=== PATIENT | female | born 1940 | race Caucasian/White ===

== ENCOUNTER 2025-06-14 07:47 | Outpatient (AMB) | payer MEDICARE, SELFPAY ==
[2025-06-14 08:09] VITALS: BP 130/80; PULSE 80; RESP 16; O2SAT 98; BMI 25.4
--- NOTE | 2025-06-14 08:09 | A.OFFVIS_ITS ---
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 Allergies Sulfa (Sulfonamide Antibiotics) Allergy (Unknown, Verified 06/14/25 08:09) Unknown Medication List - Last Reconciled 06/14/25 by Cinda Rai CNP calcium carbonate-vitamin D3 600 mg-10 mcg (400 unit) (Calcium 600 + D(3)) 1 tab PO DAILY immun glob G(IgG)-pro-IgA 0-50 10 % (Privigen) 10 grams IV Q4W multivitamin 1 tab PO DAILY potassium chloride ER 10 mEq PO DAILY triamterene-hydrochlorothiazid 75-50 mg 1 tab PO DAILY HPI Comments Details: Julia is an 85-year-old female patient with a past medical history of hypertension, hyperlipidemia, osteopenia, melanoma, presenting to the clinic today upon referral from primary care for elevated pTAU level in the setting of memory decline. In addition to the lab work, a CT of the head was performed noting chronic microvascular changes and diffuse cerebral atrophy. I do not see a TSH and B12 level for review though it is mentioned in the chart that she has an elevated TSH level in the setting of a subclinical hypothyroidism. According to Julia today, she started to notice changes to her memory about 1 year ago. Initially they were slight and have recently become more profound. She also has had more recent falls (2 over the past year). She is an avid walker and very active around her home. She does feel that her falls have been a result of some distraction/ lack of concentration. She notices that she has been more forgetful and has had some difficulty with word findings. 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 Memory evaluation: Onset of memory changes: About 1 year ago Rate of progression: More rapidly over the course of the last few months Cognitive: Difficulty remembering upcoming events:No, but she uses a calendar Getting lost: No Difficulty keeping track of time: No Difficulty finding appropriate words: Yes Difficulty making decisions or problem-solving: No, she does feel slower to process but does not feel that this is a significant issue Functional: Difficulty writing checks, paying bills: No, she manages her own finances Difficulty driving a car: No Difficulty shopping alone: No Difficulty performing household tasks:No Difficulty managing own medications:No, she manages her own medications Difficulty pursuing hobbies/leisure activities:No Change in gait: Has not noticed any changes aside from the falls that she noted Social activities: Difficulty holding conversation:Yes as she has some difficulty with word finding at times Decreased social activity with family/friends:No Less cooperative:No Less aware of others feeling/her full:No Less concerned about bathing/dressing/grooming:No Behavioral: Sad, depressed:No Anxious, worried:No Inpatient, fidgety:No Acts impulsively, disinhibited:No Change appetite or weight:No changes Change in sleep pattern, daytime fatigue:She finds that her sleep has been poor. Last night she slept only about 3 hours. This has been going on for about 2-3 year. She does nap more throughout the day. Hallucinations:No PFSH Medical History (Updated 06/14/25 @ 09:10 by Cinda Rai CNP) History of colon polyps HLD (hyperlipidemia) Skin cancer Osteopenia Hypertension Surgical History (Updated 06/07/25 @ 13:19 by Caleb Baker CMA) S/P cholecystectomy H/O bilateral cataract extraction Family History (Updated 06/07/25 @ 13:21 by Caleb Baker CMA) Mother CVA (cerebral vascular accident) Sister Hypertension Father Myocardial infarction acute Social History (Updated 06/07/25 @ 13:22 by Caleb Baker CMA) Alcohol intake: current Comment: 1 glass of wine daily Patient Tobacco Use Status: Never used Tobacco Current occupational status: retired Review of Systems Const Reports as per HPI Physical Exam Exam Exam: MOCA: MOCA total: Executive:01/01 Namin/3 Attention:03/04 Language:10/01 Abstraction:10/31 Delayed recall:11/03 Orientation:03/04 Vital Signs: Last Vital Signs Pulse 80 06/14/25 08:09 Resp 16 06/14/25 08:09 BP 130/80 06/14/25 08:09 Pulse Ox 98 06/14/25 08:09 BMI result Body Mass Index 25.4 Const General: cooperative, healthy appearing, comfortable and no acute distress Nutritional Appearance: well nourished Orientation/consciousness: patient oriented x3 Limitations: no limitations HEENT Head: Yes normal to inspection and Yes normocephalic Eyes General: appearance normal, both eyes and all related structures Visual Prieto: normal visual prieto by confrontation Alignment and Position: alignment normal Periorbital: periorbital findings normal Eyelids: Yes eyelids normal Conjunctivae: conjunctivae normal Sclerae: sclerae normal Neck Neck: Yes normal visual inspection and Yes full ROM General: Yes no CVA tenderness Back/Spine/Pelvis Back: no CVA tenderness Cervical Spine: normal cervical lordosis Thoracic/Lumbar Spine: thoracic and lumbar spine normal to inspection Neuro General: patient oriented x3 and tone normal Cranial nerves: Yes CN's II-XII intact bilaterally and Yes Facial sensation intact/muscles of mastication intact Gait exam (Neuro): Normal gait present Motor exam (neuro): 5/5 motor strength present throughout and Tremors during motor activity present bilateral upper extremity other (Action tremor only ) Sensory Exam: double simultaneous stimulation for sensation normal Deep tendon reflexes (DTR's): Right triceps reflex intensity grade: 1+, Left triceps reflex intensity grade: 1+, Rt Biceps (C5, C6): 1+, Left biceps reflex intensity grade: 1+, Right brachioradialis reflex intensity grade: 1+, Left brachioradialis reflex intensity grade: 1+, Right patellar reflex intensity grade: 3+, Left patellar reflex intensity grade: 3+, Right ankle reflex intensity grade: 2+ and Left ankle reflex intensity grade: 2+ Romberg Test: Negative Pupils: Normal pupillary reactivity/response: bilateral Psych Appearance: grossly normal Mental Status: mental status grossly normal Speech and movement: Normal speech and movement present and Clear speech present Affect: normal affect Attitude: cooperative Thought process: Normal thought process present Thought content: Normal thought content present Insight: Good insight present (Psych) Judgement: Good judgement present (Psych) Assessment & Plan Assessment & Plan (1) Memory change: Code(s): R41.3 - Other amnesia Category: Medical (2) Mild cognitive impairment: Code(s): G31.84 - Mild cognitive impairment of uncertain or unknown etiology Category: Medical Plan Julia is an 85-year-old female patient with a past medical history of hypertension, hyperlipidemia, osteopenia, melanoma, presenting to the clinic today upon referral from primary care for elevated pTAU level in the setting of memory decline. Her history and [place] score today to support diagnosis of mild cognitive impairment and possibility/likelihood of Alzheimer's dementia. She has not had an MRI of the brain and I am unable to find records of a B12 and TSH level. I will have her complete these preliminary tests before moving forward with any further testing such as a PET scan or lumbar puncture. We discussed the medication options available to her now as well as options moving forward depending on testing. She would like to start on eye memory support medication. We discussed donepezil and its role in cognitive impairment. We also discussed some of the newer medications available including lequembi and kisunla as well as the risks that come along with these medications. We did however discuss their specific role in Alzheimer's disease and the required testing before starting any of these medications including a PET scan or lumbar puncture. We will 1st start with basic labs and MRI screening and a follow-up from there at which time we can decide on any desire for further testing or explanation of any further pharmaceutical options. She does remain social and performs brain exercising activities on her computer. She has been compliant with her blood pressure medication and it is a balanced diet. -Labs: B12, TSH -MRI brain without contrast -Start donepizil 5mg daily for day-to-day cognative assistance -Follow-up in 2 months after workup has been completed -Future consideratinos include amyloid PET scan Orders: Orders TSH reflex Free T4 Today R41.3 - Other amnesia Vitamin B12 Today R41.3 - Other amnesia MR head/brain wo con Today R41.3 - Other amnesia Medications: New donepezil 5 mg PO DAILY 30 tabs 5RF 30 days Coding Level of Care Code New Pt Level 4 (94019) Diagnoses Memory change R41.3 Mild cognitive impairment G31.84
== END 2025-06-14 09:01 | disposition home or self-care (01) ==
PROVIDERS: PCP Internal Medicine; Visit Provider Nurse Practitioner
DX: G31.84 Mild cognitive impairment of uncertain or unknown etiology (principal); R41.3 Other amnesia
CPT/HCPCS: 99204

== ENCOUNTER 2025-06-14 07:47 | Outpatient (REF) | payer MEDICARE, OTHER, SELFPAY ==
[2025-06-14 12:18] LABS: Vitamin B12 699 pg/mL (200-900)
[2025-06-14 13:43] LABS: Free T4 (Free Thyroxine) 0.95 ng/dL (0.71-1.85)
== END 2025-06-14 07:48 | disposition home or self-care (01) ==
LOC: HO.LAB 07:47
PROVIDERS: PCP Internal Medicine; Visit Provider Nurse Practitioner
DX: R41.3 Other amnesia (principal); I10 Essential (primary) hypertension; Z79.899 Other long term (current) drug therapy
CPT/HCPCS: 36415; 82607; 84439; 84443; 99202

== ENCOUNTER → 2025-07-09 08:36 | Outpatient (BNV) | payer MEDICARE, SELFPAY | PROVIDERS: PCP Internal Medicine; Visit Provider Radiology Diagnostic Radiology | DX: I67.82 Cerebral ischemia (principal); H70.90 Unspecified mastoiditis, unspecified ear | CPT/HCPCS: 70551 ==

== ENCOUNTER 2025-07-09 08:40 | Outpatient (REF) | payer MEDICARE, SELFPAY | END 2025-07-09 08:41 | disposition home or self-care (01) | LOC: HO.MRI 08:40 | PROVIDERS: PCP Internal Medicine; Visit Provider Nurse Practitioner | DX: R41.3 Other amnesia (principal) | CPT/HCPCS: 70551 ==

== ENCOUNTER 2025-07-28 12:53 | Outpatient (AMB) | payer MEDICARE, OTHER, SELFPAY ==
--- NOTE | 2025-07-28 12:55 | A.OFFVIS_ITS ---
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 I saw her on 06/14/2025 at which time history was obtained, [place] score was completed scoring and orders were placed including a TSH, B12 study, and MRI of the brain. Her B12 was normal though she did have a modest increase in her TSH level. Her MRI of the brain from 07/09/2025 showed chronic periventricular microvascular ischemic disease, a partially empty sella, and some mastoid sinus disease but without any acute intracranial findings. She is today accompanied by her son. We together reviewed the lab results and MRI of her brain and discuss next steps. She would be interested in a trial of Kisunla pending her PET scan. If the scan does show evidence of Alzheimer's disease, she would like to ?do everything she can to stop it?. Her did have Alzheimer's dementia and she is fearful to have a similar experience then to what he had. [facility] Medical History (Updated 06/14/25 @ 09:10 by Cinda Rai CNP) History of colon polyps HLD (hyperlipidemia) Skin cancer Osteopenia Hypertension Surgical History (Updated 06/07/25 @ 13:19 by Caleb Baker CMA) S/P cholecystectomy H/O bilateral cataract extraction Family History (Updated 06/07/25 @ 13:21 by Caleb Baker CMA) Mother CVA (cerebral vascular accident) Sister Hypertension Father Myocardial infarction acute Social History (Updated 06/07/25 @ 13:22 by Caleb Baker CMA) Alcohol intake: current Comment: 1 glass of wine daily Patient Tobacco Use Status: Never used Tobacco Current occupational status: retired Review of Systems Const All systems reviewed & are unremarkable except as noted in HPI and below Physical Exam Vital Signs: Last Vital Signs Pulse 74 07/28/25 13:02 Resp 16 07/28/25 13:02 BP 162/96 H 07/28/25 13:02 Pulse Ox 96 07/28/25 13:02 Oxygen Delivery Method Room Air 07/28/25 13:02 BMI result Body Mass Index 25.4 Const General: cooperative, healthy appearing, comfortable and no acute distress Nutritional Appearance: well nourished Orientation/consciousness: patient oriented x3 Limitations: no limitations Eyes General: appearance normal, both eyes and all related structures Visual Jarquin: normal visual jarquin by confrontation Alignment and Position: alignment normal Periorbital: periorbital findings normal Eyelids: Yes eyelids normal Conjunctivae: conjunctivae normal Sclerae: sclerae normal Neuro General: patient oriented x3 Gait exam (Neuro): Normal gait present Motor exam (neuro): Tremors during motor activity present bilateral upper extremity other (Action tremor only ) Psych Appearance: grossly normal Mental Status: mental status grossly normal Speech and movement: Normal speech and movement present and Clear speech present Affect: normal affect Attitude: cooperative Thought process: Normal thought process present Thought content: Normal thought content present Insight: Good insight present (Psych) Judgement: Good judgement present (Psych) Assessment & Plan Assessment & Plan (1) Mild cognitive impairment: Code(s): G31.84 - Mild cognitive impairment of uncertain or unknown etiology Category: Medical Plan: . Valentina Dumont is an 85-year-old female patient with a past medical history of hypertension, hyperlipidemia, osteopenia, melanoma, presenting to the clinic today for a follow up visit regarding memory decline. I saw her on 06/14/2025 at which time history was obtained, [place] score was completed scoring 24/30 and orders were placed including a TSH, B12 study, and MRI of the brain. Her B12 and TSH levels were without any overt concern aside from a modest increase in her TSH level. Her MRI of the brain showed some microvascular changes which could certainly play a role in her memory though with an elevated amyloid assay can not exclude Alzheimer's dementia. We will perform a PET scan for further ev aluation. Vascular dementia versus Alzheimer's dementia versus a mixed dementia Could consider Kisunla pending PET scan results with the understanding that there still may be a vascular dementia component and this may put her at a higher risk for complications/ side-effects of Kisunla (ARIA). -PET scan for further evaluation Orders: Orders PET Brain beta amyloid 07/28/25 G31.84 - Mild cognitive impairment of uncertain or unknown etiology Coding Level of Care Code Est Pt Level 4 (89825) Diagnoses Mild cognitive impairment G31.84
[2025-07-28 13:02] VITALS: BP 162/96; PULSE 74; RESP 16; O2SAT 96; BMI 25.4
== END 2025-07-28 13:24 | disposition home or self-care (01) ==
LOC: HO.HSM 12:54
PROVIDERS: PCP Internal Medicine; Visit Provider Nurse Practitioner
DX: G31.84 Mild cognitive impairment of uncertain or unknown etiology (principal)
CPT/HCPCS: 99214

== ENCOUNTER → 2025-07-28 12:53 | Outpatient (BNVA) | payer MEDICARE, SELFPAY | PROVIDERS: PCP Internal Medicine; Visit Provider Nurse Practitioner | DX: G31.84 Mild cognitive impairment of uncertain or unknown etiology (principal) | CPT/HCPCS: 99212 ==